=== PATIENT | male | born 1990 | race Caucasian/White ===

== ENCOUNTER 2017-01-28 13:39 | Inpatient (IN) | payer MEDICAID ==
--- NOTE | ~2017-01-28 | EKG ---
PATIENT: KATLYN BARAHONA UNIT #: [id number] Ventricular Rate: 91 BPM Atrial Rate: 91 BPM P-R Interval: 136 ms QRS Duration: 100 ms Q-T Interval: 428 ms QTC Calculation(Bezet): 526 ms P Nineveh: 62 degrees Calculated R Nineveh: 59 degrees Calculated T Nineveh: 47 degrees Diagnosis Line: Normal sinus rhythm Diagnosis Line: Possible Left atrial enlargement Diagnosis Line: Prolonged QT Diagnosis Line: Nonspecific ST elevation Diagnosis Line: Abnormal ECG Diagnosis Line: No previous ECGs available Diagnosis Line: Confirmed by MAGI PURVIS MD ([id number]) on 01/29/2017 Diagnosis Line: 6:29:22 PM INTERPRETING MD: HYUN HERRING
--- NOTE | ~2017-01-28 | HP ---
Unit #: [id number] #: [id number] Patient: KATLYN BARAHONA [id number] [address] [place], [place] [address] [id number] MR#: [id number] NAME: KATLYN BARAHONA. ROOM: 20856 Age: 26 Sex: M Admission Date: 01/28/2017 : 1990 Attending Physician: Janna Manriquez M.D. Primary Care Physician: No Primary Care Physician HISTORY AND PHYSICAL CHIEF COMPLAINT Medical clearance for psych. HISTORY OF PRESENT ILLNESS The patient is a 26-year-old male with a [facility]. The patient stated the patient has been using the IV drug abuse for the last 12 years and the last use was last night around 12 midnight. The patient was found to have high sugars with a blood sugar in the range of 416 with the anion gap of 26 and patient is being admitted for the DKA. The patient was also found to have an abscess, a superficial abscess on the left hand and the patient has been drained by the ER physician and the patient complains of the feeling nervousness and anxiety, denies any fever, chills, nausea or vomiting. PAST MEDICAL HISTORY History of a diabetes. PAST SURGICAL HISTORY Tonsillectomy. HOME MEDICATIONS None. ALLERGIES Penicillin. FAMILY HISTORY No history of diabetes. SOCIAL HISTORY He smokes a pack of cigarettes daily, denies alcohol and injects the IV drug heroin. REVIEW OF SYMPTOMS Fourteen-point review of symptoms performed and only pertinent positive findings are described above, remaining are negative. PHYSICAL EXAMINATION GENERAL APPEARANCE: On examination the patient is lying on a bed, not in acute distress. VITAL SIGNS: Temperature 97.6, pulse 80, respiration 18, blood pressure 115/77, sating 99% at room air. Unit #: [id number] #: [id number] Patient: KATLYN BARAHONA HEENT: Head atraumatic, normocephalic. Pupils equal, round and reacting to light and accommodation. Extraocular movements are intact. NECK: Supple. LUNGS: Decreased air entry at the bases. HEART: Regular rate and rhythm. ABDOMEN: Soft, positive bowel sounds. EXTREMITIES: Status post I/D of the left hand and positive for track garcia. NEUROLOGIC: Alert, awake, oriented. Positive for nervousness and anxious. DIAGNOSTIC STUDIES LABORATORY DATA: Glucose 417, BUN 20, creatinine 1.2, sodium 133, potassium 4.5, chloride 94, bicarb 30, calcium 10.5, total protein 8.9, albumin 5, indirect bilirubin 1.3, AST 28, ALT 62, alkaline phosphatase 144, acetaminophen less than 10, salicylate less than 4, alcohol less than 5, troponin less than 0.05, sugar is 321, WBC 12.8, hemoglobin 15.5, hematocrit 47.9, platelets 288, neutrophils 78%. Urine tox is pending and UA is pending. ASSESSMENT 1. Diabetic ketoacidosis with the anion gap of 26. 2. Intravenous drug abuse. 3. Left hand abscess. 4. Heroin detox. 5. Sepsis. PLAN 1. Plan to admit the patient to the inpatient to the ICU. 2. Continue with the IV fluid normal saline at 125 mL per hour. 3. Will continue with the insulin drip and IV antibiotics with the clindamycin. 4. Check the lactic acid and hemoglobin A1C. 5. Start the sepsis protocol. 6. Will have the critical care consult with Dr. Villagomez and psych consult and endocrine consult for the new onset diabetes mellitus with a metabolic acidosis and early DKA. Further recommendations will follow. Dictated by Jg Adkins/subha TD: 01/28/2017 17:40 JOB #: [id number] Unit #: [id number] #: [id number] Patient: KATLYN BARAHONA HISTORY AND PHYSICAL Page 1 of 1 X X HISTORY AND PHYSICAL
--- NOTE | ~2017-01-28 | CR72 ---
[facility] A Service of [facility] & [facility] RADIOLOGY TEXT RESULTS PATIENT: KATLYN BARAHONA LOCATION: [facility] [id number] : [birth year] UNIT #: [id number] AGE: [address]: NANNETTE MANRIQUEZ MD SEX: M ORDER DR: [id number] [facility] [address] [place], [place] [address] [id number] MR#: [id number] Acc #: [id number] NAME: KATLYN BARAHONA : 1990 SEX: M STUDY DATE/TIME: 01/28/2017 21:39 UNIT: [facility] ROOM: 15908 STUDY DESCRIPTION: CR Chest Single View Portable Attending Physician: Nannette Manriquez M.D. Ordering Physician: Troy Fregoso M.D. Primary Care Physician: No Primary Care Physician MEDICAL IMAGING REPORT This report is preliminary unless electronic signature is present EXAM Portable chest INDICATIONS Shortness of air today. PROCEDURE Frontal view chest COMPARISON None FINDINGS Heart size normal. Lungs clear. No pleural fluid. No pneumothorax. IMPRESSION No active process Dictated by... Kodi Jaramillo M.D. THIS IS AN ELECTRONICALLY VERIFIED REPORT Kodi Jaramillo M.D. at 01/31/2017 9:46 AM JOIE/zi TD: 01/28/2017 22:23 JOB #: [id number] MEDICAL IMAGING REPORT Page 1 of 1 COPY
[2017-01-28 14:29] LABS: BASOPHIL# 0.1 X10e3 (0-0.3); EOSINOPHIL% 0.3 % (0.0-7.0); HEMATOCRIT 47.9 % (38.0-50.0); HEMOGLOBIN 15.5 gm/dL (13.0-16.0); LYMPHOCYTE# 2.3 X10e3 (1.0-3.5); LYMPHOCYTE% 17.8 % (17.0-45.0); MEAN CELL VOLUME 85.2 FL (83-96); MEAN CORPUSCULAR HEMOGLOBIN 27.6 PG (28-34); MEAN CORPUSCULAR HGB CONC 32.4 g/dL (30-36); MEAN PLATELET VOLUME 9.6 FL (6.5-11.5); MONOCYTE# 0.4 X10e3 (0-1.0); MONOCYTE% 2.9 % (3.0-12.0); NEUTROPHIL# 9.9 X10e3 (1.5-7.1); PLATELET COUNT 288 X10e3 (140-420); RED BLOOD COUNT 5.63 X10e (3.90-5.60); RED CELL DISTRIBUTION WIDTH 14.1 % (11.0-15.5); WHITE BLOOD COUNT 12.8 X10e3 (4.0-10.5)
[2017-01-28 14:33] LABS: DIFF IND NO
[2017-01-28 14:41] LABS: POC - CKMB 2.6 ng/mL (0.0-7.9); POC - TROPONIN <0.05 ng/mL (<=0.05)
[2017-01-28 15:54] LABS: ALKALINE PHOSPHATASE 144 U/L (32-92); ALT (SGPT) 62 U/L (10-40); AST (SGOT) 28 U/L (10-42); BILIRUBIN, DIRECT 0.1 mg/dL (0.0-0.2); BILIRUBIN,INDIRECT 1.3 mg/dL (0.0-0.9); BILIRUBIN,TOTAL 1.4 mg/dL (0.2-2.0); BLOOD UREA NITROGEN 20 mg/dL (9-23); BUN/CREATININE RATIO 16.66; CALCIUM SERUM 10.5 mg/dL (8.4-10.2); CARBON DIOXIDE 13 mmol/L (22-31); CHLORIDE 94 mmol/L (100-111); CREATININE SERUM 1.2 mg/dL (0.6-1.4); GLOM FILT RATE Estimated 83.6 mL/min (>60); GLUCOSE FASTING 417 mg/dL (70-110); POTASSIUM 4.5 mmol/L (3.5-5.1); PROTEIN TOTAL SERUM 8.9 g/dL (6.0-8.3); SALICYLATE <4.0 mg/dL; SODIUM 133 mmol/L (135-145)
[2017-01-28 15:55] LABS: ACETAMINOPHEN <10 ug/mL; ALCOHOL BLOOD <5 mg/dL (0)
[2017-01-28 16:09] LABS: URINE SOURCE CLEAN CATCH
[2017-01-28 16:22] LABS: URINE APPEARANCE CLEAR; URINE BILIRUBIN NEG (NEG); URINE BLOOD NEG (NEG); URINE COLOR YELLOW; URINE GLUCOSE >1000 MG/DL (NEG); URINE KETONE 3+ (NEG); URINE LEUKOCYTE ESTERASE NEG (NEG); URINE NITRATE NEG (NEG); URINE PROTEIN 1+ (NEG); URINE SPECIFIC GRAVITY 1.041 (1.003-1.035); URINE UROBILINOGEN 0.2 MG/DL (NEG)
[2017-01-28 16:29] LABS: AMPHETAMINE POS (NEG); BARBITURATES NEG (NEG); BENZODIAZEPINES NEG (NEG); COCAINE NEG (NEG); MARIJUANA NEG (NEG); OPIATES POS (NEG); TRICYCLIC ANTIDEPRESSANTS NEG (NEG); U METHADONE NEG (NEG)
[2017-01-28 16:33] LABS: CULTURE INDICATED? NO
[2017-01-28 21:40] LABS: ARTERIAL BLD GAS O2 SATURATION 97.4 % (90.0-100.0); ARTERIAL BLOOD GAS ALLEN TEST NORMAL; ARTERIAL BLOOD GAS ART SITE RIGHT RADIAL; ARTERIAL BLOOD GAS CARBOXY HB 0.7 %sat (0.0-9.0); ARTERIAL BLOOD GAS DELIVERY RA; ARTERIAL BLOOD GAS HCO3 13.2 mmol/L; ARTERIAL BLOOD GAS MET HB 0.7 %sat (0.0-2.0); ARTERIAL BLOOD GAS PCO2 25.2 mmHg (35.0-45.0); ARTERIAL BLOOD GAS pH 7.328 (7.350-7.450); ARTERIAL DRAW? YES
== END 2017-01-28 23:02 | disposition left against medical advice (07) | DRG 871 ==
LOC: CED 13:39 → CEDOF 21:30
PROVIDERS: Emergency Medicine
PROC: 0H9GXZZ Drainage of Left Hand Skin, External Approach (ICD-10-PCS; principal; 2017-01-28)
DX: A41.9 Sepsis, unspecified organism (principal); E10.10 Type 1 diabetes mellitus with ketoacidosis without coma; L02.512 Cutaneous abscess of left hand; F11.10 Opioid abuse, uncomplicated; F17.210 Nicotine dependence, cigarettes, uncomplicated
CPT/HCPCS: 10060; 36415; 36600; 71010; 80048; 80076; 80307; 81003; 82553; 82803; 82947; 83605; 84484; 85025; 87040; 93005; 96361; 96374; 99285; G0480; J0330; J1815; J2060; J2405